=== PATIENT | female | born 1990 | race African-American/Black ===

== ENCOUNTER 2017-08-08 18:26 | Emergency (ER) | payer SELFPAY ==
[~2017-08-08] VITALS: Ht 149.9 cm; Wt 55.0 kg
[2017-08-08 18:31] VITALS: BP 120/69; PULSE 120; RESP 16; TEMP 100.5; O2SAT 100
[2017-08-08] MEDS ORDERED: OSEL75 PO (19:44)
--- NOTE | 2017-08-08 19:49 | PD ---
HPI Chief Complaint: Cold / Flu Symptoms Time Seen by Provider: 19:40 Travel History International Travel<30 days: No Contact w/Intl Traveler<30days: No Traveled to known affect area: No History of Present Illness HPI 26-year-old black female presents emergency department with a 24-hour history of flulike symptoms. She admits to fever chills, headache, sore throat, cough, congestion, decreased appetite, myalgias, arthralgias and general malaise. She last took some Tylenol for fever yesterday. Nothing today. Symptoms are moderate. No alleviating factors. No exacerbating factors. [facility] Past Medical History Medical History: Denies Significant Hx Tetanus Vaccination: < 5 Years ?: Not LMP: 07/07/17 Past Surgical History Surgical History: No Previous Surgery Social History Alcohol Use: No Tobacco Use: No Allergies-Medications Reported Meds & Prescriptions Reported Meds & Active Scripts Active Tamiflu (Oseltamivir Phosphate) 75 Mg Cap 75 Mg PO BID 5 Days Review of Systems Except as stated in HPI: all other systems reviewed are Neg Physical Exam Narrative GENERAL: Well-developed, well-nourished in no acute distress. Nontoxic appearing. HEAD: Normocephalic, atraumatic. EYES: Pupils equal round and reactive. Extraocular motions intact. No scleral icterus. No injection or drainage. ENT: TMs clear without erythema. The external auditory canals clear. Nose: clear . Posterior pharynx is pink and moist. No tonsillar edema or exudate. Uvula midline. Airway patent. NECK: Trachea midline.Supple, nontender, moves head freely. No central bony tenderness or spasm. CARDIOVASCULAR: Regular rate and rhythm without murmurs, gallops, or rubs. RESPIRATORY: Clear to auscultation. Breath sounds equal bilaterally. No wheezes , rales, or rhonchi. GASTROINTESTINAL: Abdomen soft, non-tender, nondistended. No hepato-splenomegaly , or palpable masses. No guarding. EXTREMITIES: No clubbing, cyanosis, or edema. No joint tenderness, effusion, or edema noted. BACK: Nontender without deformity or crepitance. No flank tenderness. Data Data Last Documented VS Vital Signs Date Time Temp Pulse Resp B/P (MAP) Pulse Ox O2 Delivery O2 Flow Rate FiO2 08/08/17 18:31 100.5 120 16 120/69 (86) 100 Room Air MDM Medical Decision Making Medical Screen Exam Complete: Yes Emergency Medical Condition: Yes Medical Record Reviewed: Yes Differential Diagnosis MDM: High Differential diagnoses: Pneumonia, bronchitis, URI, asthma, RAD, influenza Narrative Course Patient is given 600 mg of ibuprofen p.o. This is influenza-like illness Diagnosis Primary Impression: Influenza-like illness Patient Instructions: General Instructions Departure Forms: Tests/Procedures, Work Release Special Instructions: No work 3-5 days. Additional Instructions: Rest. Increase fluids. Tylenol and Advil. Robitussin-DM. Tamiflu Followup with your DrNati in one week. Return to the ER for any problems. Med/Other Pt SpecificInfo: Prescription(s) given Scripts Oseltamivir (Tamiflu) 75 Mg Cap 75 MG PO BID for Mgmt Viral Infection for 5 Days, #10 CAP 0 Refills Prov: Jay Kevin MD 08/08/17 Disposition: 01 DISCHARGE HOME Condition: Stable Harsh Mckeon Aug 08, 2017 19:49
[2017-08-08] MEDS ORDERED: IBUPROFEN 600 MG TAB PO ONE (20:00)
[2017-08-08 20:12] VITALS: PULSE 115; RESP 20; TEMP 100; O2SAT 99
== END 2017-08-08 20:20 | disposition home or self-care (01) ==
LOC: NEPD 18:26
DX: J11.1 Influenza due to unidentified influenza virus with other respiratory manifestations (principal); R50.9 Fever, unspecified; R51 Headache; R07.0 Pain in throat; R05 Cough; R63.0 Anorexia; M79.1 Myalgia; M25.50 Pain in unspecified joint; R53.81 Other malaise
CPT/HCPCS: 99283